=== PATIENT | female | born 1985 | race Caucasian/White ===

== ENCOUNTER 2017-03-18 11:13 | Emergency (ER) | payer BC, OTHER ==
[2017-03-18 11:35] VITALS: BP 114/58; PULSE 77; TEMP 97.3; BMI 30.9
--- NOTE | 2017-03-18 12:05 | PDOC ---
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 Was seen by the nurse and was found to be mildly bradycardic at 56 bpm. Since then has gradually improved, although still feels a little lightheaded Review of systems: No chest pain, shortness of breath, abdominal pain, vomiting or diarrhea, urinary tract symptoms, vaginal bleeding or discharge. Denies the possibility of , or his regular, no missed menses. No visual or focal neurologic symptoms unsteadiness of gait. Remainder of systems reviewed and found to be negative Past medical history: Healthy female, no active medical or surgical problems, no admits to feeling similar symptoms at the time of blood drawing in the past. Social/family history reviewed and noncontributory Physical exam: Patient is alert oriented well-developed well-nourished in no acute distress and cooperative Afebrile, vital signs normal including pulse of 77 and normal blood pressure PERRLA 4 mm, fundi benign with sharp disc margins and good central venous pulsations, ENT clear Neck supple without bruit mass or nodes Lungs clear with full breath sounds throughout bilaterally, no wheezes rales or rhonchi CV S1 and S2 normal without murmur rub or gallop pulses full and symmetric no JVD or edema no bruits 77/m Abdomen soft nontender without mass or organomegaly. Bowel sounds normal Neurological C2 to 12 intact. Strength full and symmetric. No focal sensory or motor deficits. Gait stable and unimpaired. Extremities no CCE Skin clear, no rash, adequate turgor and wet mucous membranes Impression: Vasovagal near syncope. No signs of the history of physical of acute cardiac or neurological event Plan: Reassure. Rest and fluids. Return to ER if symptoms recur or any additional symptoms develop, otherwise follow-up with primary physician in one to 2 days. Fully ambulatory and in no pain or other distress upon discharge with mother to follow-up as recommended Past History - Past Medical History Allergies/Adverse Reactions: Allergies Allergy/AdvReac Type Severity Reaction Status Date / Time No Known Allergies Allergy Unverified 03/18/17 11:28 Home Medications: Ambulatory Orders Phentermine HCl 37.5 mg PO PRN PRN 03/18/17 Rizatriptan Benzoate [Maxalt] 10 mg PO PRN PRN 03/18/17 Topiramate [Topamax] 125 mg PO DAILY 03/18/17 COPD: No Other medical history: MIGRAINE - Suicide/Smoking/Psychosocial Hx Smoking History: Never smoked Hx Alcohol Use: No Drug/Substance Use Hx: No Substance Use Type: None *Physical Exam - Vital Signs Last Vital Signs Temp Pulse Resp BP Pulse Ox 97.3 F L 77 16 114/58 100 03/18/17 11:27 03/18/17 11:27 03/18/17 11:27 03/18/17 11:27 03/18/17 11:27 *DC/Admit/Observation/Transfer Diagnosis at time of Disposition: Vasovagal near syncope - Discharge Dispostion Disposition: HOME Condition at time of disposition: Improved Admit: No - Referrals Referrals: Dima Alexander MD [Primary Care Provider] - 2 Days - Patient Instructions Printed Discharge Instructions: DI for Syncope in Adults (Fainting) Additional Instructions: Rest for the remainder of the day. Adequate hydration. Good nutrition Return to ER if symptoms recur or additional symptoms develop. Otherwise follow- up with primary physician - Post Discharge Activity Forms/Work/School Notes: Back to School
== END 2017-03-18 12:49 | disposition home or self-care (01) ==
LOC: FER 11:13
DX: R55 Syncope and collapse (principal)
CPT/HCPCS: 99281-25